=== PATIENT | female | born 1990 | race Caucasian/White ===

== ENCOUNTER 2017-04-05 19:46 | Emergency (ER) | payer OTHER, MEDICAID ==
[~2017-04-05 19:46] MED LIST: ALBU1AER INH; CEPH-460 PO; IBUP800T23 PO; LANTUSP SQ; NOVOLOGP2 SQ
[2017-04-05 19:49] VITALS: BP 137/79; PULSE 84; RESP 17; TEMP 98.2; O2SAT 100
[2017-04-05] MEDS ORDERED: DICL75TA PO (22:05)
[2017-04-05] MEDS ORDERED: CYCL1TAB29 PO (22:05)
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
[2017-04-05] MEDS ORDERED: ACETAMINOPHEN/HYDROcodone 325 MG/5 MG TAB PO ONE (22:15)
[2017-04-05] MEDS ORDERED: ONDANSETRON ODT 4 MG TAB PO ONE (22:15)
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
== END 2017-04-05 23:00 | disposition home or self-care (01) ==
LOC: NED 19:46 → NEPD 19:46 → NED 20:42 → NEPD 23:00
DX: S16.1XXA Strain of muscle, fascia and tendon at neck level, initial encounter (principal); R51 Headache; R11.0 Nausea; S50.811A Abrasion of right forearm, initial encounter; J45.909 Unspecified asthma, uncomplicated; F31.9 Bipolar disorder, unspecified; E11.9 Type 2 diabetes mellitus without complications; I10 Essential (primary) hypertension; V49.40XA Driver injured in collision with unspecified motor vehicles in traffic accident, initial encounter
CPT/HCPCS: 72040; 99284

== ENCOUNTER 2017-08-19 00:53 | Emergency (ER) | payer MEDICAID ==
[~2017-08-19] VITALS: Ht 167.6 cm; Wt 59.0 kg
[~2017-08-19 00:53] MED LIST changes: +CYCL10TA PO; +DICL75TA PO; +IBUP1TAB7 PO; -IBUP800T23 PO
[2017-08-19 00:55] VITALS: BP 151/81; PULSE 101; RESP 24; TEMP 98.9; O2SAT 97
[2017-08-19] MEDS: RESP: ALBUTEROL 2.5 MG/IPRATROPIUM 0.5 MG NEB (SCH) INH (01:32)
[2017-08-19 01:39] LABS: AUTOMATED NEUTROPHIL # 5.1 TH/MM3 (1.8-7.7); BASOPHIL # 0.1 TH/MM3 (0-0.2); BASOPHIL % 0.8 % (0.0-2.0); EOSINOPHIL # 0.7 TH/MM3 (0-0.4); EOSINOPHIL % 8.4 % (0.0-4.0); HEMATOCRIT 45.3 % (35.0-46.0); HEMOGLOBIN 15.5 GM/DL (11.6-15.3); LYMPHOCYTE # 2.3 TH/MM3 (1.0-4.8); MEAN CELL VOLUME 82.8 FL (80.0-100.0); MEAN CORPUSCULAR HEMOGLOBIN 28.3 PG (27.0-34.0); MEAN CORPUSCULAR HGB CONC 34.2 % (32.0-36.0); MEAN PLATELET VOLUME 8.2 FL (7.0-11.0); MONO % 7.5 % (0.0-8.0); MONOCYTE # 0.7 TH/MM3 (0-0.9); NEUT % 57.3 % (16.0-70.0); PLATELET COUNT 243 TH/MM3 (150-450); RED BLOOD COUNT 5.47 MIL/MM3 (4.00-5.30); RED CELL DISTRIBUTION WIDTH 12.9 % (11.6-17.2); WHITE BLOOD COUNT 8.8 TH/MM3 (4.0-11.0)
--- NOTE | 2017-08-19 01:49 | RADRPT ---
EXAM DATE/TIME: 08/19/2017 01:44 [facility] COMPARISON: No previous studies available for comparison. INDICATIONS : Short of breath. MEDICAL HISTORY : None. SURGICAL HISTORY : None. ENCOUNTER: Initial ACUITY: 1 day PAIN SCORE: 0/10 LOCATION: Bilateral chest FINDINGS: A single view of the chest demonstrates the lungs to be symmetrically aerated without evidence of mas s, infiltrate or effusion. The cardiomediastinal contours are unremarkable. Osseous structures are intact. CONCLUSION: Normal examination. Juan Bynum MD on August 19, 2017 at 1:47 Board Certified Radiologist. This report was verified electronically.
[2017-08-19] MEDS ORDERED: LANTUS2P SQ (01:50)
[2017-08-19] MEDS ORDERED: ALBU6.7H INH ×2 (01:50→03:45)
[2017-08-19] MEDS ORDERED: NOVOLOGP2 SQ (01:50)
[2017-08-19 01:55] LABS: BICARBONATE 25.2 MEQ/L (21.0-32.0); CALCIUM 8.9 MG/DL (8.5-10.1); CREATININE 0.72 MG/DL (0.50-1.00)
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
[2017-08-19 02:11] VITALS: RESP 20; O2SAT 98
[2017-08-19] MEDS ORDERED: AZITHROMYCIN INJ 500 MG in SODIUM CHLOR 0.9% 250 ML INJ 250 ML IV ONE (02:30)
[2017-08-19] MEDS ORDERED: cefTRIAXone INJ 1,000 MG in SODIUM CHLORIDE 0.9% INJ 100 ML IV ONE (02:30)
[2017-08-19] MEDS ORDERED: SODIUM CHLOR 0.9% 1000 ML INJ 1,000 ML IV ONE (02:30)
[2017-08-19] MEDS ORDERED: methylPREDNISolone SOD SUCC 125 MG/2 ML VIAL IV PUSH ONE (02:30)
[2017-08-19] MEDS ORDERED: ZITH250T PO (03:36)
[2017-08-19] MEDS ORDERED: CEFU1TAB20 PO (03:36)
[2017-08-19] MEDS ORDERED: MEDR4PAK PO (03:36)
== END 2017-08-19 05:07 | disposition home or self-care (01) ==
LOC: NEPE 00:53
DX: J45.21 Mild intermittent asthma with (acute) exacerbation (principal); J20.9 Acute bronchitis, unspecified; F31.9 Bipolar disorder, unspecified; I10 Essential (primary) hypertension; F43.10 Post-traumatic stress disorder, unspecified; E10.9 Type 1 diabetes mellitus without complications; Z79.4 Long term (current) use of insulin
CPT/HCPCS: 71045; 80048; 84703; 85025; 94640; 94664; 96365; 96367; 96375; 99284; J0456; J0696; J2930; J7030; J7050

== ENCOUNTER 2017-11-11 20:12 | Emergency (ER) | payer MEDICAID ==
[~2017-11-11] VITALS: Ht 167.6 cm; Wt 63.0 kg
[~2017-11-11 20:12] MED LIST changes: -ALBU1AER INH; +ALBU6.7H INH; +CEFU1TAB20 PO; -CEPH-460 PO; -CYCL10TA PO; -DICL75TA PO; -IBUP1TAB7 PO; +LANTUS2P SQ; -LANTUSP SQ; +MEDR4PAK PO; +ZITH250T PO
[2017-11-11 20:20] VITALS: BP 133/90; PULSE 65; RESP 18; TEMP 98.5; O2SAT 98
== END 2017-11-11 21:12 | disposition left against medical advice (07) ==
LOC: PHED 20:12
DX: Z53.21 Procedure and treatment not carried out due to patient leaving prior to being seen by health care provider (principal); L53.9 Erythematous condition, unspecified; M79.89 Other specified soft tissue disorders
CPT/HCPCS: 99281